=== PATIENT | female | born 1985 | race Hispanic/Latino ===

== ENCOUNTER 2017-05-31 08:14 | Emergency (ER) | payer SELFPAY | END 2017-05-31 08:47 | disposition home or self-care (01) | LOC: ERS 08:14 | DX: J06.9 Acute upper respiratory infection, unspecified (principal) | CPT/HCPCS: 99282 ==

== ENCOUNTER 2022-09-28 13:09 | Emergency (ER) | payer OTHER, BC ==
[2022-09-28] MEDS ORDERED: Ketorolac Tromethamine 30 MG/ML VIAL ONE (13:55)
[2022-09-28] MEDS ORDERED: Promethazine 25 MG TAB ONE (13:55)
== END 2022-09-28 16:00 | disposition home or self-care (01) ==
LOC: ERS 13:09
DX: S82.401A Unspecified fracture of shaft of right fibula, initial encounter for closed fracture (principal); V89.2XXA Person injured in unspecified motor-vehicle accident, traffic, initial encounter
CPT/HCPCS: 70450; 72125; 96372; J1885; Q0169